=== PATIENT | female | born 1995 | race American Indian/Alaskan Native ===

== ENCOUNTER 2017-07-26 23:36 | Emergency (ER) | payer OTHER ==
--- NOTE | 2017-07-26 23:55 | C.PDOC ---
History Of Present Illness 22 year old female with a Hx of longstanding asthma since childhood presents to the ER with a complaint of a sudden onset of cough, SOB, and pleuritic chest pain that began earlier today while at work. Patient normally uses a hand delivered metered dose inhaler as needed, however, she reports today she had no improvement which prompted 911 call. Patient received 2 nebulizer treatments and IV steroids en route to the hospital with improvement of symptoms, however, patient still notes having residual right sided pleuritic chest pain. Patient notes she was seen at another hospital yesterday for an episodes of hives from an unknown ideology and is currently on oral steroids. Patient denies Hx of intubation, Hx of admission, or known allergies. Time Seen by Provider: 07/26/17 23:43 Chief Complaint (Nursing): Shortness Of Breath History Per: Patient History/Exam Limitations: no limitations Current Symptoms Are (Timing): Still Present Initiating Event: Other (not known) Current Respiratory Medications: Other (Inhaler) Associated Symptoms: Chest Pain (pleuritic), Other (Cough, SOB). denies: Fever , Chills Past Medical History Reviewed: Historical Data, Nursing Documentation, Vital Signs Vital Signs: Last Vital Signs Temp 97.8 F 07/27/17 01:21 Pulse 75 07/27/17 01:21 Resp 18 07/27/17 01:21 BP 118/72 07/27/17 01:21 Pulse Ox 99 07/27/17 01:21 - Medical History PMH: Asthma Surgical History: No Surg Hx Family History: States: Unknown Family Hx - Social History Hx Alcohol Use: No Hx Substance Use: No - Immunization History Hx Tetanus Toxoid Vaccination: No Hx Influenza Vaccination: No Hx Pneumococcal Vaccination: No Review Of Systems Constitutional: Negative for: Fever, Chills ENT: Negative for: Throat Pain, Throat Swelling Cardiovascular: Positive for: Chest Pain (Pleuritic) Respiratory: Positive for: Cough, Shortness of Breath Gastrointestinal: Negative for: Nausea, Vomiting, Abdominal Pain Skin: Negative for: Rash Neurological: Negative for: Weakness, Numbness Physical Exam - Physical Exam Appears: Non-toxic, Other (Currently on neb treatment, speaking in complete sentences, pulse ox at 99) Skin: Normal Color, Warm, Dry Head: Atraumatic, Normacephalic Eye(s): bilateral: Normal Inspection, EOMI Nose: Normal, No Flaring Oral Mucosa: Moist Neck: Normal, No Midline Cervical Tenderness, No Paracervical Tenderness, Supple Chest: Symmetrical, No Tenderness Cardiovascular: Rhythm Regular (S1 and S2 within normal limits) Respiratory: Normal Breath Sounds, No Accessory Muscle Use, No Rales, No Rhonchi , No Stridor, No Wheezing Gastrointestinal/Abdominal: Soft, No Tenderness, No Distention Extremity: No Pedal Edema Pulses: Left Radial: Normal, Right Radial: Normal, Left Dorsalis Pedis: Normal, Right Dorsalis Pedis: Normal Neurological/Psych: Oriented x3, Normal Speech, Other (No focal deficits) ED Course And Treatment - Laboratory Results Result Diagrams: 07/27/17 00:15 07/27/17 00:15 O2 Sat by Pulse Oximetry: 100 (Room air) Pulse Ox Interpretation: Normal - Radiology CXR: Interpreted by Me CXR Interpretation: Yes: No Acute Disease, Other (Cardiac silhoutte within normal limits) Medical Decision Making Medical Decision Making: Impression: Acute asthma exacerbation. Will treat patient with another nebulizer treatment, CXR, and routine blood work. Patient will most likely be discharged home. On reevaluation, patient's lungs are clear and she is in no distress, will discharge home on metered dose inhaler and steroids.Repeat peak flow was 300 after initially being 160 on arrival Disposition - Disposition Referrals: [facility] [Outside] Disposition: HOME/ ROUTINE Disposition Time: 01:07 Condition: GOOD Prescriptions: Albuterol HFA [Ventolin HFA 90 mcg/actuation (8 g)] 2 puff IH [id number] PRN #1 puff PRN Reason: Shortness Of Breath Instructions: Asthma (ED), How to Stop Smoking (ED), How to Use a Nebulizer (ED ) Forms: [employer] ([place]) - Clinical Impression Clinical Impression: Asthma attack, Smoking - Scribe Statement The provider has reviewed the documentation as recorded by the Scribzana Reid All medical record entries made by the Scribe were at my direction and personally dictated by me. I have reviewed the chart and agree that the record accurately reflects my personal performance of the history, physical exam, medical decision making, and the department course for this patient. I have also personally directed, reviewed, and agree with the discharge instructions and disposition.
[2017-07-27] MEDS ORDERED: Albuterol-Ipratrop 3 mg / 0.5 (3 ml) UD INH STA (00:04)
[2017-07-27] MEDS ORDERED: Albuterol-Ipratrop 3 mg / 0.5 (3 ml) UD ONE (00:07)
[2017-07-27 00:29] LABS: CHLORIDE 103 mmol/L (98-107); SODIUM 139 mmol/L (132-148)
[2017-07-27 00:31] LABS: GFR AFRICAN-AMERICAN > 60
[2017-07-27 00:32] LABS: ALKALINE PHOSPHATASE 62 U/L (38-126); ALT/SGPT 32 U/L (9-52); AST/SGOT 17 U/L (14-36); BILIRUBIN,TOTAL 0.6 mg/dL (0.2-1.3); BLOOD UREA NITROGEN 12 mg/dL (7-17); CARBON DIOXIDE 26 mmol/L (22-30); GLUCOSE,RANDOM 115 mg/dL (65-105)
[2017-07-27 00:33] LABS: BASO % 0.3 % (0.0-2.0); CALCIUM 8.5 mg/dl (8.6-10.4); EOS # 0.2 K/uL (0.0-0.7); EOS % 2.7 % (0.0-4.0); HEMATOCRIT 37.3 % (34.0-47.0); LYMPH # 1.5 K/uL (1.0-4.3); LYMPH % 16.7 % (20.0-40.0); MEAN CELL VOLUME 77.4 fL (81.0-99.0); MEAN CORPUSCULAR HEMOGLOBIN 25.4 pg (27.0-31.0); MEAN CORPUSCULAR HGB CONC 32.9 g/dL (33.0-37.0); MEAN PLATELET VOLUME 8.1 fL (7.2-11.7); MONO # 0.5 K/uL (0.0-0.8); MONO % 5.9 % (0.0-10.0); RED CELL DISTRIBUTION WIDTH 17.6 % (11.5-14.5); WHITE BLOOD COUNT 8.8 K/uL (4.8-10.8)
[2017-07-27 01:25] VITALS: BP 118/72; PULSE 75; RESP 18; TEMP 97.8
[2017-07-27 03:05] VITALS: O2SAT 100
--- NOTE | 2017-07-27 08:33 | RAD ---
PROCEDURE: CHEST RADIOGRAPH, 1 VIEW HISTORY: SOB COMPARISON: None available. FINDINGS: LUNGS: The lungs are clear. PLEURA: No pneumothorax or pleural fluid seen. CARDIOVASCULAR: Normal. OSSEOUS STRUCTURES: No significant abnormalities. VISUALIZED UPPER ABDOMEN: Normal. OTHER FINDINGS: None. IMPRESSION: No active pulmonary disease.
== END 2017-07-27 01:25 | disposition home or self-care (01) ==
LOC: C.ER 23:36
DX: J45.909 Unspecified asthma, uncomplicated (principal)